=== PATIENT | male | born 1975 | race Caucasian/White ===

== ENCOUNTER 2021-08-28 13:21 | Outpatient (CLI) | payer MEDICARE, BC, SELFPAY ==
--- NOTE | 2021-08-28 13:00 | MR_ITS ---
Final Report Patient: USAMA RIVERA Facility:?[facility] Patient ID:?[id number] Site Patient ID:?[id number] Site :?[id number] Study:?MRI Spine Lumbar W/O-08/28/2021 3:36:19 PM Ordering Physician:Delta Matt Final Report: INDICATION: Low back pain. COMPARISON: 07/04/2014. TECHNIQUE: Sagittal T1, T2, and STIR sequences. Axial T1 and T2 weighted sequences. FINDINGS: Normal vertebral body alignment. No acute fractures. No vertebral body loss of height. No ligamentous injury. Stable mature postop changes of left hemilaminectomy at L4-5. No suspicious osseous lesions. Normal conus terminates at L1. Stable mild chronic anterior wedging and loss of height of the L1 vertebral body. T12-L1: No spinal canal or neural foraminal narrowing. L1-2: Mild progressive disc degeneration. No spinal canal or neural foraminal narrowing. L2-3: Mild progressive disc degeneration posterior disc bulge. No spinal canal or neural foraminal narrowing. L3-4: Progressive disc degeneration. Diffuse disc bulge. Right foraminal disc protrusion measures approximately 3 mm in short axis. Flattening of ventral thecal sac. No narrowing of spinal canal. Mild narrowing of the right neural foramen. No narrowing of left neural foramen. L4-5: Postop changes. Stable disc degeneration. Diffuse disc bulge eccentric to the left. There remains mild narrowing of spinal canal. Bilateral subarticular recess narrowing with potential impingement of the traversing L5 nerve roots. No narrowing of the right neural foramen. Mild to moderate narrowing of the left neural foramen. Mild facet arthropathy. L5-S1: Progressive disc degeneration loss disc height. Diffuse disc bulge and endplate osteophytic ridging. Mild narrowing of spinal canal. Bilateral subarticular recess narrowing with impingement of the traversing S1 nerve roots. Moderate bilateral foraminal narrowing. Potential impingement of the L5 nerve roots. Normal visualized SI joints. IMPRESSION: 1. Normal limit. No acute fractures. 2. Interval progression of lumbar spondylosis. 3. Stable mature postoperative changes L4-5. 4. At L3-4, right foraminal disc protrusion. Mild narrowing the right neural foramina 5. At L4-5, postoperative changes. There remains mild narrowing of spinal canal. Bilateral subarticular recess narrowing with potential impingement of the traversing L5 nerve roots. Mild to moderate narrowing of the left neural foramina 6. At L5-S1, mild narrowing of the spinal canal. Potential impingement of the traversing S1 nerve roots. Moderate bilateral neural foraminal narrowing. Dictated by Oneal Salgado MD @ 08/29/2021 10:02:48 AM (Electronic Signature)
== END 2021-08-28 13:22 | disposition home or self-care (01) ==
LOC: MRI 13:22
PROVIDERS: Visit Provider Anesthesiology Pain Medicine
DX: M54.50 Low back pain, unspecified (principal); M51.36 Other intervertebral disc degeneration, lumbar region; M51.26 Other intervertebral disc displacement, lumbar region; M47.816 Spondylosis without myelopathy or radiculopathy, lumbar region
CPT/HCPCS: 72148

== ENCOUNTER 2022-12-24 15:43 | Outpatient (CLI) | payer MEDICARE, BC, SELFPAY | END 2022-12-24 15:44 | disposition home or self-care (01) | LOC: INJ CL 15:44 | PROVIDERS: PCP Family Medicine; Visit Provider Family Medicine | DX: M51.36 Other intervertebral disc degeneration, lumbar region (principal); M54.16 Radiculopathy, lumbar region | CPT/HCPCS: 64483; J1100; Q9966 ==

== ENCOUNTER 2023-02-21 13:42 | Outpatient (CLI) | payer MEDICARE, BC, SELFPAY ==
--- NOTE | 2023-02-21 13:45 | CRLHL7_ITS ---
For Patients: As a result of the Century Cures Act, medical imaging exams and procedure reports are released immediately into your electronic medical record. You may view this report before your referring provider. If you have questions, please contact your health care provider. INDICATION: Lumbar radiculopathy. COMPARISON: 08/20/2021. Technique Sagittal T1, T2, and STIR sequences. Axial T1 and T2 weighted sequences. FINDINGS: Normal vertebral body alignment. No acute fractures. Chronic mild loss of height and anterior wedging of the L1 and L2 vertebral bodies. Normal conus terminates at L1. [id number]: No spinal canal neural foraminal narrowing. L1-2: Disc degeneration. No spinal canal neural foraminal narrowing. L2-3: No spinal canal or neural foraminal narrowing. L3-4: Disc degeneration diffuse disc bulge. Right foraminal disc protrusion measures approximately 3 mm in short axis. Mild narrowing of the right neural foramen. No narrowing of the left neural foramen. L4-5: Disc degeneration and loss disc height. Mature postoperative changes of left hemilaminectomy. No narrowing of spinal canal. Left subarticular recess narrowing with potential impingement of the traversing left L5 nerve root. No narrowing of the right neural foramen. Mild narrowing of the left neural foramen. Mild facet arthropathy. L5-S1: Disc degeneration. Diffuse disc bulge. Mild narrowing of spinal canal. No alirio impingement of the traversing S1 nerve roots. Moderate narrowing of the bilateral foramina. Mild facet arthropathy. Degenerative changes of the SI joints. Normal paraspinal soft tissues. IMPRESSION: 1. Normal alignment. No fractures 2. Chronic mild loss of height and anterior wedging of L1 and L2. 3. Stable lumbar spondylosis 4. At L3-4, right foraminal disc protrusion. Mild narrowing of the right neural foramina 5. At L4-5, mature postop changes left hemilaminectomy. Left subarticular recess narrowing with potential impingement of the traversing left L5 nerve root. Mild narrowing of the left neural foramina 6. At L5-S1, mild narrowing of the spinal canal. Moderate narrowing of the bilateral neural foramina Dictated by Oneal Salgado MD @ 02/21/2023 11:25:47 PM (Electronically Signed)
== END 2023-02-21 13:43 | disposition home or self-care (01) ==
LOC: MRI 13:43
PROVIDERS: Visit Provider Anesthesiology Pain Medicine
DX: M54.16 Radiculopathy, lumbar region (principal); M47.896 Other spondylosis, lumbar region; M51.26 Other intervertebral disc displacement, lumbar region; M51.27 Other intervertebral disc displacement, lumbosacral region
CPT/HCPCS: 72148